=== PATIENT | female | born 1950 | race Caucasian/White ===

== ENCOUNTER 2023-10-02 09:39 | Emergency (ER) | payer MEDICARE, BC, SELFPAY ==
[2023-10-02] VITALS (7 sets, daily range): BP systolic 146–190; BP diastolic 62–84; BMI 28.6
--- NOTE | 2023-10-02 10:51 | ED.GENMED ---
History of Present Illness
General
Chief Complaint: Breathing Problem
Source: patient
Exam Limitations: none
Time Seen by Provider: 10/02/23 10:10
Nursing documentation reviewed up to this point in time: agreed with
Travel History
Have you had any contact with someone who has COVID-19?: No
Do you have any symptoms of coronavirus? Fever > 100 degrees, chills, cough, shortness of breath, sore throat, loss of taste or smell, muscle aches, or headache?: No
History of Present Illness
History of Present Illness:
Patient with history of asthma on Breo as well as rescue inhaler at home, presents to ED secondary to recurrent seasonal allergies, contributing to persistent cough, hoarse voice, and difficulty breathing, noted over the past 1 month. Patient
states that she has had number of similar symptoms in the past, with seasonal changes. Patient has responded to steroid treatment in the past. Denies fever or chills. Denies chest pain. Denies nausea or vomiting. Denies loss of appetite.
Patient has been using her inhaler at home, with minimal relief in symptoms.
Past History
Past History
ED Past Medical History: HTN, NIDDM, Hypothyroidism and Psychiatric (anxiety)
Review of Systems
Review of Systems
Allergies reviewed?: Yes
All Other Systems: ROS reviewed and negative except as documented in HPI and ROS
Constitutional: Reports no symptoms; Denies fever
EENT: Reports sore throat and runny nose (nasal congestion)
Respiratory: Reports cough and trouble breathing
Cardiac: Denies chest pain
ABD/GI: Reports no symptoms
Musculoskeletal: Reports no symptoms
Skin: Reports no symptoms
Neurological: Reports no symptoms
Phy Exam
Physical Exam
Physical Exam:
Physical Exam
General: mid respiratory distress, not acutely ill. afebrile
Head: nc/at. eomi
Neck: supple. no meningeal signs.
Heart: s1/s2 regular rate and rhythm, no murmur. equal radial pulses.
Lungs: mild respiratory distress. mild right lower base wheezing noted.
Abdomen: normal bowel sounds. not tender.
Neuro: alert and oriented. no focal neurological deficits
Skin: no rash
Psychiatric: well kept. interactive and cooperative
Extremities: no edema. no calf tenderness.
Scores
Heart Failure Risk
Heart Failure Risk Score: Not Applicable
Course
Orders/Labs/Results
Orders:
Orders
10/02/23 10:50
Ipratropium/Albuterol Sulfate [Duoneb] 3 ml INH R NOW ONE
Ipratropium/Albuterol Sulfate [Duoneb] 3 ml INH R NOW STA
Prednisone [Deltasone] 50 mg PO NOW STA
Vital Signs
Initial and Last Documented VS:
Initial Vital Signs
Temp Pulse Resp BP Pulse Ox
98.1 F 96 18 190/70 96
10/02/23 09:41 10/02/23 09:41 10/02/23 09:41 10/02/23 09:41 10/02/23 09:41
Last Documented Vital Signs
Temp Pulse Resp BP Pulse Ox
98.1 F 101 20 159/80 99
10/02/23 09:41 10/02/23 12:03 10/02/23 12:03 10/02/23 12:03 10/02/23 12:03
MDM/Problems Addressed
MDM/Problems Addressed:
Patient reports improvement in symptoms after treatment. History and exam consistent with likely asthma exacerbation secondary to seasonal allergies. Patient will be started on short course of prednisone, which she has responded to in the past,
along with recommendation to follow-up with her primary care physician later this week.
*Critical Care Note
Total Time (30-74mins, 75-104mins- exclusive of procedures): Not Applicable
ED Attending Note
-
Portions of this chart may have been created with voice recognition software.� Occasional wrong word or��sound alike� substitutions may have occurred due to the inherent limitations of voice recognition software.
Discharge Plan
Departure
Patient Disposition: Home (Routine Discharge)
Date of Disposition: 10/02/23
Time of Disposition: 12:18
Patient with high blood pressure during this ER visit?: Yes
Condition: Good
Discharge Problem:
Asthma, Seasonal allergic rhinitis
Instructions: Seasonal Allergies (DC), Asthma, Adult (DC)
Prescriptions:
New
prednisone 50 mg Tablet
50 mg PO DAILY Qty: 3 0RF
No Action
lisinopril 20 MG tablet
20 mg PO .DAILY PM
levothyroxine 75 MCG tablet
75 mcg PO DAILY
Spiriva Respimat
18 mcg inhalation DAILY PRN (Reason: ASTHMA)
albuterol sulfate 1 PUFF HFA aerosol inhaler
1 puff inhalation R Q4HPRN PRN (Reason: SOB)
cetirizine [Zyrtec] 5 MG tablet
5 mg PO DAILY PRN (Reason: allergies)
Patient Comments:
uses only 1/4 of tablet
hydrochlorothiazide 12.5 MG capsule
12.5 mg PO .MONWEDFRI
lorazepam 1 MG tablet
0.25 mg PO Q8HPRN PRN (Reason: ANXIETY)
Appearex 2,500 MCG tablet
2,500 mcg PO HS
cholecalciferol (vitamin D3) [Vitamin D3] 400 UNIT capsule
400 unit PO DAILY
calcium-vitamin D3-vitamin K 1 EACH tablet,chewable
1 ea PO .QPM
Co Q-10 (with Vit E) 1 EACH capsule
1 cap PO DAILY
Patient Comments:
TAKES IN THE AFTERNOON
montelukast 10 MG tablet
10 mg PO QPM
atorvastatin 20 MG tablet
20 mg PO .MWF
metformin 1,000 MG tablet
1,000 mg PO BID
meclizine 25 MG tablet
25 mg PO Q8HPRN PRN (Reason: dizziness) Qty: 15 0RF
Trulicity 0.75 mg/0.5 mL Pen Injector
0.75 mg SC QWEEK
Breo Ellipta
1 puff inhalation DAILY
Referrals:
Can Taylor MD [Family Provider] -
Activity Restrictions/Additional Instructions:
As discussed, please follow-up with your primary care physician for reevaluation later this week. Your prescription has been sent electronically to [facility] pharmacy in [place].
Interventions
Interventions:
*Risk Screen - Suicide Last Done: 10/02/23 10:26
*Neglect/Abuse Screening Last Done: 10/02/23 10:26
ED- Fall Risk Assessment Last Done: 10/02/23 10:26
*ED COVID-19 Vaccine History Last Done: 10/02/23 09:41
*Nursing Disposition Last Done: 10/02/23 12:29
ED- Cardiac Assessment Last Done: 10/02/23 10:28
ED- Pulmonary Assessment Last Done: 10/02/23 10:27
Discharge Date and Time
Discharge Date/Time: 10/02/23 12:30
Print Language: SWEDISH
[2023-10-02] MEDS: DELTASONE 50 MG PO (11:22)
[2023-10-02] MEDS: DUONEB 3 ML INH ×2 (11:23→11:31)
== END 2023-10-02 12:30 | disposition home or self-care (01) ==
LOC: EMR 09:39
PROVIDERS: EMERGENCY PHYSICIAN Emergency Medicine; FAMILY PHYSICIAN Internal Medicine Geriatric Medicine
DX: J45.909 Unspecified asthma, uncomplicated (principal); I10 Essential (primary) hypertension; E11.9 Type 2 diabetes mellitus without complications; E03.9 Hypothyroidism, unspecified; F41.9 Anxiety disorder, unspecified
CPT/HCPCS: 99284; 94640

== ENCOUNTER → 2024-06-05 09:26 | Outpatient (REF) | payer MEDICARE, BC, SELFPAY | LOC: RAD 09:26 | PROVIDERS: ATTENDING PHYSICIAN Internal Medicine Geriatric Medicine | DX: E11.9 Type 2 diabetes mellitus without complications (principal); E78.2 Mixed hyperlipidemia; I10 Essential (primary) hypertension; E03.9 Hypothyroidism, unspecified; R74.8 Abnormal levels of other serum enzymes; F41.1 Generalized anxiety disorder; J45.40 Moderate persistent asthma, uncomplicated; Z12.31 Encounter for screening mammogram for malignant neoplasm of breast; E55.9 Vitamin D deficiency, unspecified; R53.83 Other fatigue; N76.0 Acute vaginitis; Z13.89 Encounter for screening for other disorder; E11.42 Type 2 diabetes mellitus with diabetic polyneuropathy; R35.0 Frequency of micturition; I73.9 Peripheral vascular disease, unspecified | CPT/HCPCS: 93925 ==